=== PATIENT | male | born 1985 | race Caucasian/White ===

== ENCOUNTER 2023-11-28 22:17 | Emergency (ER) | payer BC, OTHER ==
[2023-11-28] MEDS: Diazepam 5 MG Tab PO ONE (23:18)
[2023-11-28] MEDS: predniSONE 10 MG Tab PO ONE (23:18)
[2023-11-28] MEDS: Ketorolac 30 MG/ML SDV IM ONE (23:18)
== END 2023-11-29 00:06 | disposition home or self-care (01) ==
LOC: MW.ED 22:17
DX: M54.41 Lumbago with sciatica, right side (principal); F17.210 Nicotine dependence, cigarettes, uncomplicated
CPT/HCPCS: 96372; 99283; A9270; J1885

== ENCOUNTER 2024-07-28 12:39 | Emergency (ER) | payer OTHER ==
[2024-07-28] MEDS: Ketorolac 30 MG/ML SDV IM ONE (13:26)
[2024-07-28] MEDS: Orphenadrine 60 MG/2 ML Inj IM ONE (13:27)
== END 2024-07-28 14:23 | disposition home or self-care (01) ==
LOC: MW.ED 12:39
DX: S39.012A Strain of muscle, fascia and tendon of lower back, initial encounter (principal); F17.210 Nicotine dependence, cigarettes, uncomplicated; Z79.899 Other long term (current) drug therapy; X50.0XXA Overexertion from strenuous movement or load, initial encounter; Y93.89 Activity, other specified
CPT/HCPCS: 96372; 99283; J1885; J2360; 99282